=== PATIENT | female | born 1940 | race Caucasian/White ===

== ENCOUNTER → 2020-05-05 | Outpatient (CLI) | payer MEDICARE | END | disposition home or self-care (01) | LOC: LABPAT 09:52 | PROVIDERS: ATTEND Otolaryngology | DX: Z01.818 Encounter for other preprocedural examination (principal) | CPT/HCPCS: 36415; 82565; 84132; 84520; 93005 ==

== ENCOUNTER → 2020-05-06 | Day surgery (SDC) | payer MEDICARE, OTHER ==
[2020-05-03 15:28] VITALS: BMI 44.4
[~2020-05-06] MED LIST: DEXAMETHASONE SOD PHOSPHATE 10 MG/ML 1 ML VIAL IV ONE; HYDROmorphone 0.5 MG/0.5 ML SYRINGE IVP PRN; LACTATED RINGERS 1,000 ML IV SCH; LIDOCAINE 1% (10MG/ML) FOR IV START INTRADERMA PRN; LIDOCAINE 1% INJ 10MG/ML (20 ML MDV) ONE; MIDAZOLAM 2 MG/2 ML VIAL IV PRN; MIDAZOLAM 2 MG/2 ML VIAL ONE; OFLOXACIN 0.3% OPHTH DROPS 5 ML BOTTLE BOTH EARS ONE; ONDANSETRON 4 MG/2 ML VIAL IVP ONE; ONDANSETRON 4 MG/2 ML VIAL ONE; PROMETHAZINE INJ 25 MG/ML 1 ML VIAL IVPB ONE; PROPOFOL 10 MG/ML 20 ML VIAL IV ONE; Pre Op ABX Message 1 EACH MISC MISCELLANE ONE; fentaNYL (PF) 50 MCG/ML 2 ML AMP IV PRN; fentaNYL (PF) 50 MCG/ML 2 ML AMP ONE
--- NOTE | 2020-05-06 01:24 | HP ---
HISTORY AND PHYSICAL CHIEF COMPLAINT: Fluid, bilateral chronic serous otitis media with possible perforation of the right tympanic membrane. HISTORY OF PRESENT ILLNESS: The patient is a pleasant 80-year-old female who was recently seen in my office for evaluation of a plugged sensation in both ears. The patient has history of having a bilateral myringotomy with insertion of ventilation tubes several years ago. At the time that she is seen in my office, clinical examination revealed evidence of fluid in the right ear and possibly evidence of fluid in the left ear and possibly in the right ear. In addition to this, there was a suggestion that there may be a small perforation in the right tympanic membrane. It was recommended that the patient undergo a bilateral myringotomy with insertion of ventilation tube with possible Kartush patch under IV sedation with MAC. PAST MEDICAL HISTORY: Past medical history reveals that the patient has allergies to STATINS, CODEINE, PRANDIN. CURRENT MEDICATIONS: Current medications include insulin, Lantus insulin, Advair, Coreg, carvedilol, amlodipine, valsartan and HCTZ. PREVIOUS SURGERIES: Previous surgeries include cholecystectomy, hysterectomy, colon resection, removal of a cyst of the sacrum, bilateral myringotomy with insertion of ventilation tubes, and bilateral cataract surgery. REVIEW OF SYSTEMS: Cardiovascular is positive for hypertension and ASHD. Respiratory is positive for asthma. Gastrointestinal is negative. Metabolic endocrine is positive for type 1 diabetes mellitus. The remainder of the review of systems is noncontributory. PHYSICAL EXAMINATION: This patient is a pleasant 80-year-old female who is alert, cooperative and well oriented to time and place. HEENT EXAMINATION: Patient is normocephalic. Right tympanic membrane appears to be dull with suggestion of fluid and possible perforation. Examination of the left ear reveals that the left tympanic membrane is dull with fluid in the left middle ear space. Pupils are equal, round, react to light and accommodation. Extraocular movements within normal limits. Intranasal examination reveals moderate septal deviation with compensatory hypertrophy of the inferior turbinates and a moderate amount of mucus on the mucous membranes and draining down the posterior pharynx. Examination of oropharynx, palpation of the neck, cranial nerves 2 through 12 and the remainder of the head and neck exam are all within normal limits. CHEST/CARDIOVASCULAR: Both lung holloway are clear to percussion and auscultation. Patient is in regular sinus rhythm. S1 and S2 are present without evidence of any murmurs, S3s or S4s. Peripheral pulses are bilaterally symmetrical. ABDOMEN: There is no evidence of any masses, megaly, or tenderness. The abdomen is soft. Skin is unremarkable. Musculoskeletal and neurological is unremarkable. PELVIC/RECTAL EXAM: The pelvic and rectal exam is deferred at this time because the patient has this done on a regular basis at her family physician's office. The remainder of the physical exam is essentially unremarkable. IMPRESSION: Chronic bilateral serous otitis media and possible perforation of the right tympanic membrane. PLAN: The patient is scheduled to undergo a bilateral myringotomy with insertion of ventilation tubes and possible insertion of a Kartush patch under IV sedation with MAC or under general anesthesia depending upon the anesthesia department's preference. ATTENTION RNS IN THE PRE-SURGICAL AREA: I have not ordered any pre-surgical prophylactic antibiotics for this patient. If the pharmacy department sends any pre- surgical prophylactic antibiotics to the pre-surgical area for this patient, that medication should be returned to the pharmacy department and the order should be cancelled. Make sure that the patient's account is credited appropriately. I have discussed the risks, benefits and alternative therapies for the above-mentioned procedure and for both sedation/analgesia as well as necessary blood product administration, if indicated, as they pertain to this patient. The patient has indicated his or her understanding and acceptance of the risks and procedures discussed. MMODL / IJN: [id number] /
[2020-05-06 11:19] LABS: Glucose,Whole Blood 161 mg/dL (75-99)
[2020-05-06 13:33] VITALS: TEMP 97
[2020-05-06 14:35] VITALS: RESP 17
[2020-05-06 14:45] VITALS: BP 175/79; PULSE 76
--- NOTE | 2020-05-07 02:43 | OP ---
OPERATIVE REPORT PREOPERATIVE DIAGNOSIS: Chronic serous otitis media with possible perforation of the right tympanic membrane. POSTOPERATIVE DIAGNOSIS: Chronic bilateral serous otitis media with no perforation of the right tympanic membrane. ANESTHESIA: General. OPERATIVE PROCEDURE: Bilateral myringotomy with insertion of Activent Anatoly bobbin type ventilation tubes. SURGEON: Jace Puckett M.D. COMPLICATIONS: None. OPERATIVE PROCEDURE: The patient was placed on the operating table in a supine position and after uneventful induction, satisfactory general anesthesia was obtained. Next, the patient's right ear was draped in the usual and customary fashion and using the Zeiss operating microscope and a #3 aural speculum the right external auditory canal was cleansed of all wax and debris. This ear had previously been thought to have a large perforation and upon inspection, no perforation was found. 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 That is to say there was a single layer healing of the tympanic membrane which caused it to be extremely clear and appeared to be a perforation. The myringotomy knife was used to make an incision in the anterior inferior quadrant of the tympanic membrane and the middle ear space was suctioned free of all fluid and a Activent Anatoly bobbin type ventilation tube was inserted through the previously made myringotomy incision without difficulty. Next, attention was directed to the patient's left ear where the same procedure was carried out using the Zeiss operating microscope and a #3 aural speculum. The left external auditory canal was cleansed of all wax and debris. Next, a myringotomy knife was used to make an incision in the anterior inferior quadrant of the left tympanic membrane. Once again, the left middle ear space was suctioned free of all fluid and an Activent Anatoly bobbin type ventilation tube was inserted through the previously made myringotomy incision without difficulty. At this point, the procedure was terminated. There were no intraoperative complications. The patient tolerated the procedure well and was returned to the recovery room in satisfactory condition. MMODL / IJN: [id number] /
== END | disposition home or self-care (01) ==
LOC: OR 10:45
PROVIDERS: ATTEND Otolaryngology
DX: H65.23 Chronic serous otitis media, bilateral (principal); I10 Essential (primary) hypertension; J45.909 Unspecified asthma, uncomplicated; E11.9 Type 2 diabetes mellitus without complications; E07.9 Disorder of thyroid, unspecified; K21.9 Gastro-esophageal reflux disease without esophagitis; Z88.5 Allergy status to narcotic agent; Z88.8 Allergy status to other drugs, medicaments and biological substances; Z79.4 Long term (current) use of insulin; Z79.51 Long term (current) use of inhaled steroids; Z79.899 Other long term (current) drug therapy; Z90.49 Acquired absence of other specified parts of digestive tract; Z90.710 Acquired absence of both cervix and uterus; Z98.890 Other specified postprocedural states; Z98.41 Cataract extraction status, right eye; Z98.42 Cataract extraction status, left eye; Z79.890 Hormone replacement therapy
CPT/HCPCS: 69436; J2250; J2550; J2405; J2001; J3010; J2704; J1170